=== PATIENT | male | born 1950 | race Caucasian/White ===

== ENCOUNTER 2022-08-06 10:38 | Outpatient (CLI) | payer MEDICARE ==
[2022-08-06 13:12] LABS: #Basophils 0.1 10x3/uL (0.0-0.2); #Eosinphils 0.2 10x3/uL (0.0-0.5); #Monocytes 1.4 10x3/uL (0.0-1.1); #Neutrophils 5.3 10x3/uL (1.5-8.4); %Basophils 0.5 % (0.0-2.0); %Eosinophils 2.2 % (0.0-6.0); %Lymphocytes 32.3 % (18.0-47.0); %Monocytes 13.3 % (0.0-10.0); %Neutrophils 50.9 % (40.0-75.0); Hemoglobin 14.9 g/dL (13.5-17.5); Mean Corpuscular HGB CONC 34.2 g/dL (32.0-36.0); Mean Corpuscular Hemoglobin 30.1 pg (27.0-33.0); Mean Corpuscular Volume 88.1 fl (81.2-95.1); Mean Platelet Volume 10.6 fl (7.4-10.4); Platelet Count 224 10x3/uL (150-450); Red Blood Cell (RBC) Count 4.95 10x6/uL (4.32-5.72); White Blood Cell (WBC) Count 10.4 10x3/uL (3.5-10.5)
== END 2022-08-06 10:39 | disposition home or self-care (01) ==
LOC: LABBT 10:38
PROVIDERS: ATTEND Orthopaedic Surgery Hand Surgery
DX: Z01.818 Encounter for other preprocedural examination (principal); M18.12 Unilateral primary osteoarthritis of first carpometacarpal joint, left hand
CPT/HCPCS: 85025; 93005; 93010

== ENCOUNTER 2022-08-10 11:57 | Day surgery (SDC) | payer MEDICARE ==
[2022-08-07 13:21] VITALS: BMI 30.4
[2022-08-10] MEDS ORDERED: Betamet Acet/Betamet Na Ph 30 MG/5 ML VIAL ONE (13:13)
[2022-08-10] MEDS ORDERED: Bacitracin Zinc Ointment 30 gm TUBE ONE (13:13)
[2022-08-10] MEDS ORDERED: Bupivacaine PF 0.5% 30 ML VIAL ONE ×2 (13:13→13:21)
[2022-08-10] MEDS ORDERED: FENTANYL 50 MCG/ML 1 ML VIAL ONE (13:20)
[2022-08-10] MEDS ORDERED: Vancomycin 1 GM/200 ML (FROZEN) BAG ONE (13:21)
[2022-08-10] MEDS ORDERED: fentaNYL PF 100 MCG/2 ML SYRINGE ONE (13:38)
[2022-08-10] MEDS ORDERED: Ondansetron PF 4 MG/2 ML Vial ONE (13:51)
[2022-08-10] MEDS ORDERED: PROPOFOL 200 MG/20 ML VIAL ONE (13:51)
[2022-08-10] MEDS ORDERED: Neomycin-Polymyxin 1 ML AMP ONE (14:20)
[2022-08-10] MEDS ORDERED: Ketorolac Tromethamine 30 MG/ML VIAL ONE (16:28)
== END 2022-08-10 17:46 | disposition home or self-care (01) ==
LOC: SDC 11:57
PROVIDERS: ATTEND Orthopaedic Surgery Hand Surgery
PROC: 0RQT0ZZ Repair Left Carpometacarpal Joint, Open Approach (ICD-10-PCS; principal; 2022-08-10)
DX: M18.0 Bilateral primary osteoarthritis of first carpometacarpal joints (principal); I10 Essential (primary) hypertension; J44.9 Chronic obstructive pulmonary disease, unspecified; N40.0 Benign prostatic hyperplasia without lower urinary tract symptoms; Z87.891 Personal history of nicotine dependence; Z79.82 Long term (current) use of aspirin; Z79.899 Other long term (current) drug therapy; Z88.0 Allergy status to penicillin
CPT/HCPCS: 25310; 25447; 73110; C1894; J3010; J3370; J0702; J1885; S0020

== ENCOUNTER 2024-03-14 11:45 | Outpatient (CLI) | payer MEDICARE | END 2024-03-14 11:46 | disposition home or self-care (01) | LOC: PET 11:45 | PROVIDERS: ATTEND Family Medicine | DX: R91.1 Solitary pulmonary nodule (principal); J98.4 Other disorders of lung | CPT/HCPCS: 78815; A9552 ==

== ENCOUNTER 2024-05-25 14:01 | Outpatient (CLI) | payer MEDICARE ==
[2024-05-25 15:13] LABS: #Basophils 0.05 10x3/uL (0.0-0.2); %Basophils 0.5 % (0.0-1.0); %Eosinophils 2.9 % (0.0-10.0); %Lymphocytes 31.7 % (21.0-51.0); %Monocytes 11.1 % (0.0-10.0); %Neutrophils 53.1 % (42.0-75.0); Hematocrit 43.1 % (42.0-52.0); Mean Corpuscular HGB CONC 34.8 g/dL (32.0-36.0); Mean Corpuscular Hemoglobin 29.9 pg (27.0-31.0); Mean Corpuscular Volume 85.9 fL (78.0-98.0); Mean Platelet Volume 10.3 fL (7.4-10.4); Platelet Count 194 10x3/uL (130-400); RBC Distribution Width 13.7 % (11.5-14.5); Red Blood Cell (RBC) Count 5.02 mill/uL (4.70-6.10)
== END 2024-05-25 14:02 | disposition home or self-care (01) ==
LOC: LABBT 14:01
PROVIDERS: ATTEND Orthopaedic Surgery Hand Surgery
DX: Z01.818 Encounter for other preprocedural examination (principal); Z96.698 Presence of other orthopedic joint implants
CPT/HCPCS: 85025; 93005; 93010

== ENCOUNTER 2024-07-11 06:13 | Day surgery (SDC) | payer MEDICARE ==
[2024-07-10 09:43] VITALS: BMI 30.4
[2024-07-11 06:41] LABS: #Basophils 0.06 10x3/uL (0.0-0.2); %Basophils 0.6 % (0.0-1.0); %Lymphocytes 34.1 % (21.0-51.0); %Monocytes 13.2 % (0.0-10.0); %Neutrophils 48.6 % (42.0-75.0); Hematocrit 44.9 % (42.0-52.0); Hemoglobin 15.4 g/dL (14.0-18.0); Mean Corpuscular HGB CONC 34.3 g/dL (32.0-36.0); Mean Corpuscular Hemoglobin 30.1 pg (27.0-31.0); Mean Corpuscular Volume 87.9 fL (78.0-98.0); Mean Platelet Volume 10.1 fL (7.4-10.4); Platelet Count 178 10x3/uL (130-400); RBC Distribution Width 13.2 % (11.5-14.5); Red Blood Cell (RBC) Count 5.11 mill/uL (4.70-6.10)
[2024-07-11] MEDS ORDERED: Bacitracin Zinc Ointment 30 gm TUBE ONE (06:45)
[2024-07-11] MEDS ORDERED: Bupivacaine PF 0.5% 30 ML VIAL ONE (06:45)
[2024-07-11] MEDS ORDERED: Propofol 1,000 MG/100 ML VIAL IV ONE (07:04)
[2024-07-11] MEDS ORDERED: Vancomycin 1 GM/200 ML (FROZEN) BAG ONE (07:05)
[2024-07-11] MEDS ORDERED: Ketamine In 0.9 % NaCl 50 MG/5 ML SYRINGE ONE (07:07)
[2024-07-11] MEDS ORDERED: fentaNYL PF 100 MCG/2 ML SYRINGE ONE (07:07)
[2024-07-11] MEDS ORDERED: Midazolam HCl 2 mg/2 ml Vial ONE (07:08)
== END 2024-07-11 09:06 | disposition home or self-care (01) ==
LOC: SDC 06:13
PROVIDERS: ATTEND Orthopaedic Surgery Hand Surgery
PROC: 0RPW04Z Removal of Internal Fixation Device from Right Finger Phalangeal Joint, Open Approach (ICD-10-PCS; principal; 2024-07-11)
DX: T84.84XA Pain due to internal orthopedic prosthetic devices, implants and grafts, initial encounter (principal); I10 Essential (primary) hypertension; E78.5 Hyperlipidemia, unspecified; Z98.890 Other specified postprocedural states; Z88.0 Allergy status to penicillin; Z79.82 Long term (current) use of aspirin; Z79.2 Long term (current) use of antibiotics; Z79.899 Other long term (current) drug therapy; Y83.1 Surgical operation with implant of artificial internal device as the cause of abnormal reaction of the patient, or of later complication, without mention of misadventure at the time of the procedure
CPT/HCPCS: 20680; 73140; 85025; 86141; 93005; A6223; J0665; J2250; J2704; J3370; J3490; 36415; 93010